=== PATIENT | female | born 1970 | race Caucasian/White ===

== ENCOUNTER → 2018-11-02 | Outpatient (CLI) | payer OTHER ==
--- NOTE | 2018-11-03 17:06 | PATH ---
[address] [address] PATHOLOGY RPT PROCEDURE Name: YUDI BERNARD Room: [facility] JOSIE Bergeron#: [id number] Admission: 11/02/18 Date of : 66 Discharge: Report #: [id number] Path Case #: [id number] [facility] Accession Number: [id number] . 01 Material submitted: . breast - LEFT BREAST, 6:00, 1 CMFN. Modifiers: left, 6:00 . 01 Clinical history: . 1.77 x 0.83 x 1.49 cm mass . 02 Diagnosis: Left breast, 6:00, 1 cm from nipple, image guided core biopsy: - Fibroadenoma/fibroadenomatosis with prominent myxoid stroma and coarse calcifications and benign breast tissue, negative for atypia. See comment. (CARRIE:ben; 11/03/2018) MBJose Antonio/11/03/2018 . 02 Comment: Reviewed with Dr. Aleksandar Cantu who agrees with the diagnosis. (CARRIE:ben; 11/03/2018) . 02 Electronically signed: . Azeem Barton MD, Pathologist NPI- [id number] . 01 Gross description: . Received in formalin labeled "Yudi Bernard, left breast 6:00 1 cm FN," are multiple needle cores of yellow-gonzales fibrofatty tissue measuring 3.4 x 3.7 x 0.6 cm in aggregate dimensions. The tissue is submitted in its entirety in cassettes A1 through A3. The cold ischemic time is 5 minutes. The total formalin fixation time is 9 hours and 32 minutes. (TSD; 11/02/2018) TOB/TOB . 02 Pathologist provided ICD-10: D24.2 . 02 CPT . 106830 Specimen Comment: A courtesy copy of this report has been sent to Specimen Comment: [phone], , . Specimen Comment: Report sent to ,DR TIJERINA / DR AMEZCUA Performed at: [address] [facility] [id number] MD Yariel Siddiqi MD Phone: [phone] Performed at: 02 [place] [address] PATHOLOGY RPT PROCEDURE Name: YUDI BERNARD YULIA Room: [facility] Rubio#: [id number] Admission: 11/02/18 Date of : 66 Discharge: Report #: [id number] Path Case #: [id number] [facility] [address] [place] [id number] MD Azeem Barton MD Phone: [phone]
== END | disposition home or self-care (01) ==
LOC: M.ULTRA 11-01 11:00
DX: D24.2 Benign neoplasm of left breast (principal); R92.1 Mammographic calcification found on diagnostic imaging of breast

== ENCOUNTER → 2019-11-07 | Outpatient (CLI) | payer OTHER | LOC: M.ULTRA 13:00 → M.RAD 13:51 → M.ULTRA 15:00 | DX: Z12.31 Encounter for screening mammogram for malignant neoplasm of breast (principal) ==